=== PATIENT | male | born 1970 | race Caucasian/White ===

== ENCOUNTER → 2017-11-07 15:34 | Outpatient (CLI) | payer BC, SELFPAY ==
--- NOTE | 2017-11-07 15:45 | XR_ITS ---
EXAM: XR cervical spine 5V HISTORY: ITS.REASON: LEFT UPPER ARM PAIN ORDERING PHYSICIAN: Darrin Munoz MD PATIENT AGE: 47 years COMPARISON: None FINDINGS: Normal alignment. No fracture or dislocation. No lytic or blastic change. There is mild degenerative disc disease at C5-C6 and C6-C7 with minimal endplate hypertrophic change. The foramina are widely patent. No cervical ribs. Patient says slightly tilted toward the left. IMPRESSION: Mild degenerative disc disease C5-C6 and C6-C7
== END ==
PROVIDERS: PCP Family Medicine; Visit Provider Family Medicine
DX: M79.622 Pain in left upper arm (principal); M79.621 Pain in right upper arm
CPT/HCPCS: 72050

== ENCOUNTER → 2018-03-29 11:58 | Outpatient (CLI) | payer BC, SELFPAY ==
--- NOTE | 2018-03-29 12:04 | XR_ITS ---
XR knee RT 3V HISTORY: ITS.REASON: RT KNEE PAIN ORDERING PHYSICIAN: Darrin Munoz MD PATIENT AGE: 47 years COMPARISON: None FINDINGS: No fracture or dislocation. No lytic or blastic change. Normal mineralization. No significant arthritic changes evident. No other significant findings IMPRESSION: Negative Knee
== END ==
PROVIDERS: PCP Family Medicine; Visit Provider Family Medicine
DX: M25.561 Pain in right knee (principal)
CPT/HCPCS: 73562

== ENCOUNTER → 2020-06-29 11:55 | Outpatient (CLI) | payer BC, SELFPAY ==
--- NOTE | 2020-06-29 12:03 | XR_ITS ---
PROCEDURE: XR CERVICAL SPINE 5V CLINICAL INDICATION: DISORDER OF THE NECK Neck pain COMPARISON: CR [id number] XR cervical spine 5V from 11/07/2017 FINDINGS: Normal alignment. No fracture or dislocation. Small anterior osteophyte inferiorly at C5. Mild degenerative disc disease C6-C7. No significant foraminal narrowing. No lytic or blastic change. Other findings:None. IMPRESSION: Mild degenerative disc disease C6-C7 Dictated by: Joseph Skaggs MD 06/29/2020 17:44 Joseph Skaggs MD in [place] 06/29/2020 17:44
== END ==
PROVIDERS: PCP Family Medicine; Visit Provider Family Medicine
DX: M53.82 Other specified dorsopathies, cervical region (principal)
CPT/HCPCS: 72050

== ENCOUNTER → 2023-02-06 11:23 | Outpatient (CLI) | payer BC, SELFPAY | LOC: SL 11:26 | PROVIDERS: PCP Family Medicine; Visit Provider Family Medicine | DX: G47.10 Hypersomnia, unspecified (principal); R06.83 Snoring; I10 Essential (primary) hypertension; E66.9 Obesity, unspecified | CPT/HCPCS: G0399 ==